=== PATIENT | female | born 1980 | race Caucasian/White ===

== ENCOUNTER 2024-05-28 12:04 | Day surgery (SDC) | payer OTHER, SELFPAY ==
--- NOTE | 2024-05-28 | PATH_ITS ---
[facility] Accession Number: [id number] No. of containers..02 Tissue . 01 Material submitted: . PART A: gastrointestinal site - RANDOM STOMACH PART B: ileum - TERMINAL ILEUM POLYP . 01 Clinical history: . A: R/O HP . 01 Diagnosis: Part A: RANDOM STOMACH: Gastric mucosa with mild chronic inflammation. No Helicobacter organisms identified. No intestinal metaplasia, dysplasia, or malignancy identified. . Part B: TERMINAL ILEUM POLYP: Polypoid ileal mucosa with mild active inflammation. No dysplasia, granulomas, or infectious organisms identified. See comment. . Specimen Comments: The histologic features are nonspecific, and the differential diagnosis includes inflammation due to medications, particularly to NSAIDs, or an acute infectious process, among other possibilities. Involvement by Crohn's disease is not favored, given the lack of features more suggestive of chronicity. [facility] 05/31/20241336 Local . 01 Electronically signed: . Jefferson Silva MD, Pathologist NPI- [id number] . 01 Gross description: . A. Received in formalin with two patient identifiers and random stomach, is a single levine soft tissue fragments, 0.4 cm in greatest dimension, submitted in A1. . B. Received in formalin with two patient identifiers and terminal ileum, are two levine soft tissue fragments, 0.2 to 0.3 cm in greatest dimension, submitted in B1. ([id number]) /MRV 05/31/20241336 Local . 01 Microscopic: . Part A: RANDOM STOMACH: An immunohistochemical stain was performed to evaluate for Helicobacter organisms and is negative. The control stains appropriately. * This test was developed and the performance characteristics were validated by [employer]. It has not been cleared or approved by the Food and Drug Administration. . 01 Pathologist provided ICD-10: K29.50, K52.9 . 01 CPT . 783673, 759310, [id number] Specimen Comment: A courtesy copy of this report has been sent to [phone] Performed at: [address] [id number] MD Jefferson Silva MD Phone: [phone]
[2024-05-28 12:57] VITALS: BP 110/73; PULSE 79; RESP 15; TEMP 36.6; O2SAT 98
--- NOTE | 2024-05-28 12:57 | PM.OP.EC ---
Operative Date/Time/Diagnoses Date of procedure: 05/28/24 Pre-op diagnosis: See indication and findings Procedure & Clinicians Study performed: EGD and colonoscopy Indications: Epigastric pain and 1st screening for colorectal cancer Surgeon: Ceci Patten Procedure Notes Procedure in detail: After informed consent was obtained the patient was placed in left lateral decubitus position. Video upper scope was placed into the oropharynx and with the patient's help swallowed the esophagus. The esophagus stomach and duodenum were carefully examined. On withdrawal retroflexed view the GE junction was performed. The scope was removed. The patient tolerated procedure well. The patient was then turned to the scope substituted for colonoscope. This was introduced the rectum easily passed the cecum. The IC valve was identified and intubated. On slow withdrawal mucosa was carefully examined. The scope was removed. The patient tolerated procedure well. Blood loss none Complications none Sedation mac Findings EGD 1. Normal proximal and mid esophagus 2. Mild reticular changes at the GE junction but none were above the level of the tops of the G folds. This was very clear. No reason for biopsying for Willis's 3. Scattered gastric erythema biopsies taken to rule out Helicobacter 4. Normal duodenal bulb and sweep Colonoscopy 1. Terminal ileum with some areas of white exudate on the background of web-like erythema. One or 2 small aphthous ulcers may have been seen as well. Biopsies taken to rule out Crohn's 2. Otherwise negative colonoscopy to cecum Patient should have follow-up colonoscopy in 10 years for screening. Will be in touch about the biopsy results
[2024-05-28 13:50] VITALS: BP 80/55; PULSE 91; RESP 10; TEMP 36.4; O2SAT 92
--- NOTE | 2024-05-28 13:53 | PM.HP.1 ---
History of Present Illness History of Present Illness Chief complaint: EGD & Colonoscopy Narrative: Epigastric pain and need for colorectal cancer screening PFSH Social History Smoking Status: Current every day smoker alcohol intake: never Meds Home Medications and Allergies Home Medications Medication Instructions Recorded Confirmed Type bupropion HCl 150 mg 24 hr tablet, 450 mg PO DAILY 05/28/24 05/28/24 History extended release methylphenidate HCl 54 mg 54 mg PO QAM 05/28/24 05/28/24 History tablet,extended release 24 hr Allergies Allergy/AdvReac Type Severity Reaction Status Date / Time No Known Drug Allergies Allergy Verified 05/28/24 12:51 Exam Vital Signs (past 8 hours): - 05/28/24 12:57 05/28/24 13:50 Temperature 98 F 97.6 F Pulse Rate 79 91 H Respiratory Rate 15 10 L Blood Pressure 110/73 80/55 L Pulse Oximetry 98 92 Oxygen Delivery Method Room Air Room Air Oxygen Delivery Method Room Air Narrative Exam Narrative: Oropharynx free of lesions Chest clear to auscultation percussion Cardiac exam reveals no S3 or murmur Assessment & Plan Assessment & Plan narrative: History of epigastric pain need for upper endoscopy. In addition patient needs 1st screening colonoscopy. Risks, benefits, alternatives have been explained. Time-Based Coding :: [TOTAL MINUTES] spent with patient and on the chart (including review of chart, obtaining history, exam, reviewing outside data, placing orders, documenting exam and treatment plan, and counseling patient) on [DATE].
[2024-05-28 13:59] VITALS: BP 87/53; PULSE 79; RESP 17; O2SAT 96
[2024-05-28 14:04] VITALS: BP 98/67; PULSE 77; RESP 16; O2SAT 97
[2024-05-28 14:13] VITALS: BP 103/66; PULSE 80; RESP 20; TEMP 36.2; O2SAT 97
== END 2024-05-28 14:33 | disposition home or self-care (01) ==
PROVIDERS: Internal Medicine Gastroenterology; PCP Nurse Practitioner Family; Referring Provider Internal Medicine Gastroenterology; Visit Provider Internal Medicine Gastroenterology
PROC: 0DJ08ZZ Inspection of Upper Intestinal Tract, Via Natural or Artificial Opening Endoscopic (ICD-10-PCS; CPT 45380; principal; 2024-05-28 15:00)
PROC: 0DJD8ZZ Inspection of Lower Intestinal Tract, Via Natural or Artificial Opening Endoscopic (ICD-10-PCS; CPT 45378; 2024-05-28 15:00)
DX: Z12.11 Encounter for screening for malignant neoplasm of colon (principal); R10.13 Epigastric pain; K29.50 Unspecified chronic gastritis without bleeding; K63.5 Polyp of colon
CPT/HCPCS: 45380; 43239; J2704